=== PATIENT | male | born 1970 | race Caucasian/White ===

== ENCOUNTER 2018-01-19 18:13 | Emergency (ER) | payer BC ==
[2018-01-19] MEDS ORDERED: Albuterol/Ipratropium 3.0-0.5 MG/3 ML Neb Soln NEB ONE (18:14)
[2018-01-19] MEDS ORDERED: methylPREDNISolone Sodium Succinate 125 MG/2 ML SDV IVPUSH ONE (18:16)
--- NOTE | 2018-01-19 18:23 | EDM.PDOC ---
ED HPI GENERAL MEDICAL PROBLEM - General Stated Complaint: ASTMA ATTACK Time Seen by Provider: 01/19/18 18:13 Source of Information: Reports: Patient, Family (daughter) History Limitations: Reports: Respiratory Distress - History of Present Illness INITIAL COMMENTS - FREE TEXT/NARRATIVE: 47 y.o.w.m with a h/o asthma came with his family to the ed to to acute worsening of his asthma with SOB and cough. Pt ran out of Albut solution and his inhalers would not work. Pt could tlk 2 word sentences. No N/V/D, no CP or any other acute medical issues. BP 139/88 Pulse 101 Pulse oc 98 on 10 O2 by NA temp 36.6. Onset Date: 01/19/18 Onset Time: 13:00 Duration: Hour(s):, Getting Worse, Intermittent Location: Reports: Chest Quality: Reports: Same as Previous Episode Severity: Moderate Improves with: Reports: Medication Worsens with: Reports: Movement Context: Reports: Other (asthma exacerbation) Associated Symptoms: Reports: Shortness of Breath - Related Data Allergies Allergy/AdvReac Type Severity Reaction Status Date / Time No Known Allergies Allergy Verified 01/19/18 21:47 Home Meds: Home Meds Albuterol [Proventil Neb Soln] 2.5 mg .XX Q4HR PRN #1 box 01/19/18 [Rx] ED ROS GENERAL - Review of Systems Review Of Systems: See Below Constitutional: Reports: No Symptoms HEENT: Reports: No Symptoms Respiratory: Reports: Shortness of Breath, Wheezing Cardiovascular: Reports: No Symptoms Endocrine: Reports: No Symptoms GI/Abdominal: Reports: No Symptoms : Reports: No Symptoms Musculoskeletal: Reports: No Symptoms Skin: Reports: No Symptoms Neurological: Reports: No Symptoms Psychiatric: Reports: No Symptoms Hematologic/Lymphatic: Reports: No Symptoms Immunologic: Reports: No Symptoms ED EXAM, GENERAL - Physical Exam Exam: See Below Exam Limited By: Respiratory Distress General Appearance: Alert, WD/WN, Moderate Distress Eye Exam: Bilateral Eye: Normal Inspection Ears: Normal External Exam Ear Exam: Bilateral Ear: Auricle Normal Nose: Normal Inspection, Normal Mucosa Throat/Mouth: Normal Inspection, Normal Lips, Normal Oropharynx, No Airway Compromise Head: Atraumatic, Normocephalic Neck: Normal Inspection, Supple, Non-Tender, Full Range of Motion Respiratory/Chest: Respiratory Distress, Decreased Breath Sounds, Wheezing, Prolonged Expiration Cardiovascular: Normal Peripheral Pulses, Regular Rate, Rhythm, No Edema, No Gallop, No JVD, No Murmur, No Rub Peripheral Pulses: 1+: Brachial (R) GI/Abdominal: Normal Bowel Sounds, Soft, Non-Tender, No Organomegaly, No Abnormal Bruit, No Mass, Pelvis Stable (Male) Exam: Deferred Rectal (Males) Exam: Deferred Back Exam: Normal Inspection, Full Range of Motion Extremities: Normal Inspection, Normal Range of Motion, Non-Tender, No Pedal Edema, Normal Capillary Refill Neurological: Alert, Oriented, CN II-XII Intact, Normal Cognition, Normal Gait, No Motor/Sensory Deficits Psychiatric: Normal Affect, Normal Mood Skin Exam: Warm, Dry, Intact, Normal Color, No Rash Lymphatic: No Adenopathy Course - Vital Signs Text/Narrative:: 47 y.o.w.m with a h/o asthma came with his family to the ed to to acute worsening of his asthma with SOB and cough. Pt ran out of Albut solution and his inhalers would not work. Pt could tlk 2 word sentences. No N/V/D, no CP or any other acute medical issues. BP 139/88 Pulse 101 Pulse oc 98 on 10 O2 by NA temp 36.6. PE: 47 y.o.w.m. with acute asthma exacerbation, poor air movement, cough. Imaging: Refused Labs: Refused Impression: Acute asthma exacerbation Tx: Duo neb, Solumedrol, Meds refill Reexam: Improved, lungs were clear, cough subsided, could talk full word sentences Plan: D/C with instructions Last Recorded V/S: Last Vital Signs Temp 36.6 C 01/19/18 20:32 Pulse 73 01/19/18 20:32 Resp 28 H 01/19/18 20:32 BP 139/88 01/19/18 20:32 Pulse Ox 99 01/19/18 20:32 - Orders/Labs/Meds Orders: Active Orders 24 hr Category Date Time Status RT Aerosol Therapy [RC] ASDIRECTED Care 01/19/18 18:15 Active Meds: Medications Discontinued Medications Generic Name Dose Route Start Last Admin Trade Name Freq PRN Reason Stop Dose Admin Albuterol/Ipratropium 3 ml 01/19/18 18:14 01/19/18 18:39 Duoneb 3.0-0.5 Mg/3 Ml NEB 01/19/18 18:15 3 ml ONETIME ONE Administration Methylprednisolone Sodium Succinate 125 mg 01/19/18 18:16 01/19/18 18:39 Solu-Medrol IVPUSH 01/19/18 18:17 125 mg ONETIME ONE Administration Departure - Departure Time of Disposition: 19:23 Disposition: Home, Self-Care 01 Condition: Good Clinical Impression: Asthma attack Qualifiers: Asthma severity: moderate Asthma persistence: unspecified Qualified Code(s): J45.901 - Unspecified asthma with (acute) exacerbation - Discharge Information Prescriptions: Albuterol [Proventil Neb Soln] 2.5 mg .XX Q4HR PRN #1 box PRN Reason: sob Instructions: Asthma, Adult Referrals: Nehemiah Rebollar MD [Primary Care Provider] - Forms: ED Department Discharge Additional Instructions: Please take the prednison taper, please use the albuterol inhaler every 4 hours as needed, please follow up with your PMD, please come back if your symptoms get worse acutely - My Orders Last 24 Hours: My Active Orders 01/19/18 18:15 RT Aerosol Therapy [RC] ASDIRECTED - Assessment/Plan Last 24 Hours: My Active Orders 01/19/18 18:15 RT Aerosol Therapy [RC] ASDIRECTED
== END 2018-01-19 19:40 | disposition home or self-care (01) ==
LOC: FB.ED 18:13
DX: J45.901 Unspecified asthma with (acute) exacerbation (principal)
CPT/HCPCS: 99284; J2930; J7620

== ENCOUNTER 2020-08-11 15:44 | Inpatient (IN) | payer BC ==
[2020-08-11] MEDS ORDERED: Ondansetron 4 MG Tab.DIS PO PRN (16:28)
--- NOTE | 2020-08-11 16:38 | PCM.HP.2 ---
H&P History of Present Illness - General Date of Service: 08/11/20 Admit Problem/Dx: Admission Diagnosis/Problem Admission Diagnosis/Problem Viral pneumonia Source of Information: Patient, Provider - History of Present Illness Initial Comments - Free Text/Narative: Fede presented as direct admission from [facility] today, had seen Dr Rebollar for worsening shortness of breath, home saturations were in 80s, in clinic 90%. He had been treated for bronchitis on 07/30 with Z-gay completed course. Followed up with Dr Rebollar on 08/07, had chest x-ray that showed pneumonia, was started on Levofloxacin, currently day 5 of 7. Had gotten tested for Covid on 08/08 at [facility] and came back positive. He has had worsening shortness of breath over the last few days, coughing if he takes a deep breath. Has had fevers, chills, wheezing but no body aches, sore throat, vomiting, diarrhea, loss of taste/smell. History of Allergies, asthma, Diabetes, hypertension. - Related Data Allergies/Adverse Reactions: Allergies Allergy/AdvReac Type Severity Reaction Status Date / Time No Known Allergies Allergy Verified 08/11/20 16:07 Home Medications: Home Meds Albuterol [Ventolin HFA] 2 puff INH Q4H PRN 08/11/20 [History] Fluticasone Propion/Salmeterol [Advair 250-50 Diskus] 1 inh INH BID 08/11/20 [History] Levofloxacin 750 mg PO DAILY 08/11/20 [History] Montelukast [Singulair] 10 mg PO BEDTIME 08/11/20 [History] lisinopriL [Lisinopril] 10 mg PO DAILY 08/11/20 [History] metFORMIN [Glucophage] 1,000 mg PO BID 08/11/20 [History] Past Medical History Respiratory History: Reports: Asthma, SOB Other Respiratory History: Pt has long hx of asthma Social & Family History - Family History Family Medical History: No Pertinent Family History H&P Review of Systems - Review of Systems: Review Of Systems: Comprehensive ROS is negative, except as noted in HPI. Exam - Exam Exam: See Below - Exam General: Alert, Oriented, Cooperative, Mild Distress HEENT: PERRLA, Conjunctiva Clear, Nares Patent Neck: Supple, Trachea Midline Lungs: Normal Respiratory Effort, Decreased Breath Sounds, Crackles (bibasilar), Wheezing (expiratory bases>upper lobes) Cardiovascular: Regular Rate, Regular Rhythm GI/Abdominal Exam: Normal Bowel Sounds, Soft, Non-Tender, No Distention. No: Guarding, Rigid, Rebound Extremities: No Pedal Edema, Normal Capillary Refill Psychiatric: Alert, Normal Affect, Normal Mood *Q Meaningful Use (ADM) - VTE Risk Assess *Q Each Risk Factor Represents 1 Point: Age 41 - 59 years, Serious lung disease including pneumonia Total Score 1 Point Risk Factors: 2 Each Risk Factor Represents 2 Points: None Total Score 2 Point Risk Factors: 0 Each Risk Factor Represents 3 Points: None Total Score 3 Point Risk Factors: 0 Each Risk Factor Represents 5 Points: None Total Score 5 Point Risk Factors: 0 Venous Thromboembolism Risk Factor Score *Q: 2 - Problem List (1) COVID-19 SNOMED Code(s): 014659095 ICD Code: U07.1 - COVID-19 Status: Acute Current Visit: Yes (2) Viral pneumonia SNOMED Code(s): 51979545 ICD Code: J12.9 - VIRAL PNEUMONIA, UNSPECIFIED Status: Acute Current Visit: Yes (3) Asthma SNOMED Code(s): 602724260 ICD Code: J45.909 - UNSPECIFIED ASTHMA, UNCOMPLICATED Status: Chronic Current Visit: Yes (4) Hypertension SNOMED Code(s): 33757933 ICD Code: I10 - ESSENTIAL (PRIMARY) HYPERTENSION Status: Chronic Current Visit: Yes (5) Seasonal allergies SNOMED Code(s): 983096111 ICD Code: J30.2 - OTHER SEASONAL ALLERGIC RHINITIS Status: Chronic Current Visit: Yes (6) Diabetes SNOMED Code(s): 90492879 ICD Code: E11.9 - TYPE 2 DIABETES MELLITUS WITHOUT COMPLICATIONS Status: Chronic Current Visit: Yes Problem List Initiated/Reviewed/Updated: Yes Orders Last 24hrs: Active Orders 24 hr Category Date Time Status Patient Status [ADT] Routine ADT 08/11/20 16:29 Ordered Blood Glucose Check, Bedside [RC] TIDMEALS Care 08/11/20 16:28 Ordered Nurse Communication: Isolation [RC] ASDIRECTED Care 08/11/20 16:29 Ordered Oxygen Therapy [RC] PRN Care 08/11/20 16:29 Ordered Up ad Margarita [RC] ASDIRECTED Care 08/11/20 16:28 Ordered VTE/DVT Education [RC] Per Unit Routine Care 08/11/20 16:29 Ordered Vital Signs [RC] Q4H Care 08/11/20 16:29 Ordered Consistent Carbohydrate Diet [DIET] Diet 08/11/20 Dinner Ordered CBC WITH AUTO DIFF [HEME] Stat Lab 08/11/20 16:28 Ordered COMPREHENSIVE METABOLIC PN,CMP [CHEM] Stat Lab 08/11/20 16:28 Ordered D-DIMER QUANTITATIVE [COAG] Routine Lab 08/11/20 16:28 Ordered INR,PT,PROTHROMBIN TIME [COAG] Stat Lab 08/11/20 16:28 Ordered PTT,PARTIAL THROMBOPLSTIN TIME [COAG] Stat Lab 08/11/20 16:28 Ordered Acetaminophen [TylenoL] Med 08/11/20 16:28 Ordered 650 mg PO Q4H PRN Enoxaparin [Lovenox] Med 08/11/20 16:30 Ordered 40 mg SUBCUT Q24H Ondansetron [Zofran ODT] Med 08/11/20 16:28 Ordered 4 mg PO Q4H PRN Sodium Chloride 0.9% [Saline Flush] Med 08/11/20 16:28 Ordered 10 ml FLUSH ASDIRECTED PRN dexAMETHasone [Decadron] Med 08/11/20 16:45 Ordered 6 mg IVPUSH DAILY Antiembolic Hose [OM.PC] Per Unit Routine Oth 08/11/20 16:30 Ordered Isolation [COMM] Stat Oth 08/11/20 16:29 Ordered Saline Lock Insert [OM.PC] Routine Oth 08/11/20 16:28 Ordered Resuscitation Status Routine Resus Stat 08/11/20 16:28 Ordered Assessment/Plan Comment:: 1. Admit for inpatient treatment of Covid 19 viral pneumonia, history of asthma. 2. CBC, CMP, PT, aPTT, D-dimer pending. Dexamethasone 6 mg IV daily, once labs received will start Remdesivir. If no contraindication will also start Lovenox 40 mg SQ daily depending on d-dimer results. Oxygen to keep sats over 92%, goal 94%. 3. Asthma: continue home inhalers. Montelukast 10 mg bedtime. 4. DM: consistent carb diet, accuchecks tidmeals since on Dexamethasone. Humalog SSI low dose protocol to start. Continue Metformin bid. 5. Activity: as tolerated in the room. 6. CODE: FULL. - Mortality Measure Prognosis:: Good
[2020-08-11] MEDS ORDERED: Glucagon,Human Recombinant 1 MG Vial IM PRN (16:40)
[2020-08-11] MEDS ORDERED: 50% Dextrose in Water 50 ML Syringe IVPUSH PRN (16:40)
[2020-08-11] MEDS ORDERED: Albuterol 0.083% 2.5 MG/3 ML Neb Soln INH PRN (16:41)
[2020-08-11] MEDS ORDERED: Albuterol 8 GM Inhaler INH PRN ×2 (16:48→17:03)
[2020-08-11] MEDS ORDERED: REMDESIVIR 200 MG in Sodium Chloride 0.9% 250 ML IV ONE (17:44)
[2020-08-11] MEDS ORDERED: Pneumococcal Polyvalent-23 Vaccine 0.5 ML SDV SUBCUT ONE (17:52)
[2020-08-11] MEDS: Dexamethasone 4 MG/ML SDV IVPUSH SCH (18:48)
[2020-08-11] MEDS: metFORMIN 1,000 MG Tab PO SCH (18:52)
[2020-08-11] MEDS ORDERED: Insulin Lispro 100 Unit/ML 3 ML KwikPen SUBCUT ONE (19:00)
[2020-08-11] MEDS: Insulin Lispro 100 Unit/ML 3 ML KwikPen SUBCUT SCH (19:06)
[2020-08-11] MEDS: Enoxaparin 40 MG/0.4 ML Syringe SUBCUT SCH (19:09)
[2020-08-11] MEDS: Sodium Chloride 0.9% 10 ML Syringe FLUSH PRN (19:45)
[2020-08-11] MEDS: FLUTICASONE PROPION INH SCH (21:16)
[2020-08-11] MEDS: Montelukast 10 MG Tab PO SCH (21:16)
[2020-08-11] MEDS: SALMETEROL INH SCH (21:16)
[2020-08-11] MEDS: Acetaminophen 325 MG Tab PO PRN (21:18)
[2020-08-12] MEDS: metFORMIN 1,000 MG Tab PO SCH ×2 (08:56→17:48)
[2020-08-12] MEDS: Levofloxacin 750 MG Tab PO SCH (08:58)
[2020-08-12] MEDS: FLUTICASONE PROPION INH SCH ×2 (08:58→21:00)
[2020-08-12] MEDS: SALMETEROL INH SCH ×2 (08:58→21:00)
[2020-08-12] MEDS: Lisinopril 10 MG Tab PO SCH (08:59)
[2020-08-12] MEDS: Dexamethasone 4 MG/ML SDV IVPUSH SCH (09:01)
[2020-08-12] MEDS: Insulin Lispro 100 Unit/ML 3 ML KwikPen SUBCUT SCH ×3 (09:02→18:18)
[2020-08-12] MEDS ORDERED: Bismuth Subsalicylate 262 MG/15 ML Susp 236 ML Bottle PO PRN (12:24)
[2020-08-12] MEDS: Bismuth Subsalicylate 262 MG/15 ML Susp 236 ML Bottle PO PRN ×2 (13:02→22:41)
[2020-08-12] MEDS: Enoxaparin 40 MG/0.4 ML Syringe SUBCUT SCH (18:10)
[2020-08-12] MEDS: REMDESIVIR 100 MG in Sodium Chloride 0.9% 100 ML IV SCH (18:12)
[2020-08-12] MEDS: Albuterol 8 GM Inhaler INH PRN (18:55)
--- NOTE | 2020-08-12 18:59 | PCM.PN ---
- General Info Date of Service: 08/12/20 Subjective Update: Had night sweats last evening, soaked the bed and pillows. Breathing better on oxygen, cough with deep breathing. No nausea or vomiting. No diarrhea. Cough is dry. - Patient Data Vitals - Most Recent: Last Vital Signs Temp 97.9 F 08/12/20 15:55 Pulse 76 08/12/20 15:55 Resp 18 08/12/20 15:55 BP 131/63 08/12/20 15:55 Pulse Ox 95 08/12/20 15:55 Weight - Most Recent: 275 lb 1.6 oz Lab Results Last 24 Hours: Laboratory Results - last 24 hr 08/12/20 08/12/20 08/12/20 Range/Units 06:25 08:54 11:32 Sodium 140 (135-145) mmol/L Potassium 4.5 (3.5-5.3) mmol/L Chloride 102 (100-110) mmol/L Carbon Dioxide 28 (21-32) mmol/L BUN 16 (7-18) mg/dL Creatinine 0.9 (0.70-1.30) mg/dL Est Cr Clr Drug Dosing 102.52 mL/min Estimated GFR (MDRD) > 60 (>60) BUN/Creatinine Ratio 17.8 (9-20) Glucose 201 H (80-116) mg/dL POC Glucose 171 H 213 H (74-100) mg/dL Calcium 8.9 (8.6-10.2) mg/dL Total Bilirubin 1.1 (0.1-1.3) mg/dL AST 17 (5-25) IU/L ALT 39 H (12-36) U/L Alkaline Phosphatase 56 (56-112) IU/L Total Protein 7.2 (6.0-8.0) g/dL Albumin 2.9 L (3.5-5.2) g/dL Globulin 4.3 g/dL Albumin/Globulin Ratio 0.7 08/12/20 Range/Units 17:34 Sodium (135-145) mmol/L Potassium (3.5-5.3) mmol/L Chloride (100-110) mmol/L Carbon Dioxide (21-32) mmol/L BUN (7-18) mg/dL Creatinine (0.70-1.30) mg/dL Est Cr Clr Drug Dosing mL/min Estimated GFR (MDRD) (>60) BUN/Creatinine Ratio (9-20) Glucose (80-116) mg/dL POC Glucose 232 H (74-100) mg/dL Calcium (8.6-10.2) mg/dL Total Bilirubin (0.1-1.3) mg/dL AST (5-25) IU/L ALT (12-36) U/L Alkaline Phosphatase (56-112) IU/L Total Protein (6.0-8.0) g/dL Albumin (3.5-5.2) g/dL Globulin g/dL Albumin/Globulin Ratio Med Orders - Current: Current Medications Acetaminophen (Tylenol) 650 mg PO Q4H PRN PRN Reason: Pain (Mild 1-3)/fever Last Admin: 08/11/20 21:18 Dose: 650 mg Documented by: Albuterol (Ventolin Hfa) 0 gm INH Q4H PRN PRN Reason: SOB/WHEEZING Bismuth Subsalicylate (Pepto Bismol) 30 ml PO Q1H PRN PRN Reason: Dyspepsia Last Admin: 08/12/20 13:02 Dose: 30 ml Documented by: Dexamethasone (Decadron) 6 mg IVPUSH DAILY [facility] Stop: 08/20/20 09:01 Last Admin: 08/12/20 09:01 Dose: 6 mg Documented by: Dextrose/Water (Dextrose 50% In Water) 50 ml IVPUSH ASDIRECTED PRN PRN Reason: Hypoglycemia Enoxaparin Sodium (Lovenox) 40 mg SUBCUT Q24H [facility] Last Admin: 08/12/20 18:10 Dose: 40 mg Documented by: Glucagon (Glucagen) 1 mg IM ASDIRECTED PRN PRN Reason: Hypoglycemia Remdesivir 100 mg/ Sodium (Chloride) 100 mls @ 100 mls/hr IV Q24H [facility] Stop: 08/15/20 18:59 Last Admin: 08/12/20 18:12 Dose: 100 mls/hr Documented by: Insulin Human Lispro (Humalog) 0 unit SUBCUT TIDMEALS [facility]; Protocol Last Admin: 08/12/20 18:18 Dose: 4 units Documented by: Levofloxacin (Levaquin) 750 mg PO DAILY [facility] Stop: 08/13/20 09:01 Last Admin: 08/12/20 08:58 Dose: 750 mg Documented by: Lisinopril (Prinivil) 10 mg PO DAILY [facility] Last Admin: 08/12/20 08:59 Dose: 10 mg Documented by: Metformin HCl (Glucophage) 1,000 mg PO BIDMEALS [facility] Last Admin: 08/12/20 17:48 Dose: 1,000 mg Documented by: Montelukast Sodium (Singulair) 10 mg PO BEDTIME [facility] Last Admin: 08/11/20 21:16 Dose: 10 mg Documented by: Fluticasone Propion/Salmeterol (Advair) 250-50 Diskus Own Med 1 inh INH BID [facility] Last Admin: 08/12/20 08:58 Dose: 1 inh Documented by: Ondansetron HCl (Zofran Odt) 4 mg PO Q4H PRN PRN Reason: nausea, able to take PO Sodium Chloride (Saline Flush) 10 ml FLUSH ASDIRECTED PRN PRN Reason: Keep Vein Open Last Admin: 08/11/20 19:45 Dose: 10 ml Documented by: Discontinued Medications Albuterol (Ventolin Hfa) 0 gm INH Q4H PRN PRN Reason: SOB/WHEEZING Albuterol (Ventolin Hfa) 0 gm INH Q4H PRN PRN Reason: SOB/WHEEZING Bismuth Subsalicylate (Pepto Bismol) 30 ml PO Q1H PRN PRN Reason: Dyspepsia Remdesivir 200 mg/ Sodium (Chloride) 250 mls @ 250 mls/hr IV ONETIME ONE Stop: 08/11/20 17:45 Last Admin: 08/11/20 18:45 Dose: 250 mls/hr Documented by: Pneumococcal Polyvalent Vaccine (Pneumovax 23) 0.5 ml SUBCUT .ONCE ONE Stop: 08/11/20 17:53 - Exam Quality Assessment: Supplemental Oxygen General: Alert, Oriented, Cooperative, No Acute Distress Lungs: Normal Respiratory Effort, Decreased Breath Sounds (throughout), Crackles (fine bibasilar). No: Wheezing Cardiovascular: Regular Rate, Regular Rhythm GI/Abdominal Exam: Normal Bowel Sounds, Soft, Non-Tender, No Distention Sepsis Event Note - Evaluation Sepsis Screening Result: No Definite Risk - Focused Exam Vital Signs: Vital Signs Temp Pulse Pulse Pulse Resp BP BP 08/12/20 15:55 97.9 F 76 18 131/63 08/12/20 12:10 97.4 F 69 69 15 121/76 08/12/20 09:58 08/12/20 08:59 149/90 H 08/12/20 08:51 97.0 F 60 16 149/90 H Pulse Ox Pulse Ox 08/12/20 15:55 95 08/12/20 12:10 94 L 08/12/20 09:58 95 08/12/20 08:59 08/12/20 08:51 96 - Problem List & Annotations (1) COVID-19 SNOMED Code(s): 745574968 Code(s): U07.1 - COVID-19 Status: Acute Current Visit: Yes (2) Viral pneumonia SNOMED Code(s): 88125108 Code(s): J12.9 - VIRAL PNEUMONIA, UNSPECIFIED Status: Acute Current Visit: Yes (3) Asthma SNOMED Code(s): 913369469 Code(s): J45.909 - UNSPECIFIED ASTHMA, UNCOMPLICATED Status: Chronic Current Visit: Yes (4) Hypertension SNOMED Code(s): 10285296 Code(s): I10 - ESSENTIAL (PRIMARY) HYPERTENSION Status: Chronic Current Visit: Yes (5) Seasonal allergies SNOMED Code(s): 919435891 Code(s): J30.2 - OTHER SEASONAL ALLERGIC RHINITIS Status: Chronic Current Visit: Yes (6) Diabetes SNOMED Code(s): 41377981 Code(s): E11.9 - TYPE 2 DIABETES MELLITUS WITHOUT COMPLICATIONS Status: Chronic Current Visit: Yes - Problem List Review Problem List Initiated/Reviewed/Updated: Yes - My Orders Last 24 Hours: My Active Orders 08/11/20 18:00 Enoxaparin [Lovenox] 40 mg SUBCUT Q24H Insulin Lispro [HumaLOG] See Protocol SUBCUT TIDMEALS metFORMIN [Glucophage] 1,000 mg PO BIDMEALS 08/11/20 21:00 Fluticasone Propion/Salmeterol [Advair 250-50 Diskus] 1 inh INH BID Montelukast [Singulair] 10 mg PO BEDTIME 08/12/20 08:33 Albuterol [Ventolin HFA] 0 gm INH Q4H PRN 08/12/20 09:00 levoFLOXacin [Levaquin] 750 mg PO DAILY lisinopriL [Prinivil] 10 mg PO DAILY 08/12/20 12:29 Bismuth Subsalicylate [Pepto Bismol] 30 ml PO Q1H PRN 08/12/20 17:46 RT Incentive Spirometry [RC] Q1HWA 08/12/20 18:00 Remdesivir (Eua) [Remdesivir (EUA)] 100 mg Sodium Chloride 0.9% [Normal Saline] 100 ml IV Q24H 08/13/20 06:00 ALANINE AMINOTRANSFERASE,ALT [CHEM] Routine ASPARTATE AMNIOTRANSFERASE,AST [CHEM] Routine CREATININE W/GFR [CHEM] Routine - Plan Plan:: 1. COVID pneumonia: Remdesivir 100 mg IV daily x 4, day 2, Dexamethasone 6 mg IV daily, day 2. Lovenox 40 mg SQ daily. Oxygen to keep sats over 92%, goal 94%. Incentive spirometry. 2. Asthma: continue home inhalers. Montelukast 10 mg bedtime. 3. DM: consistent carb diet, accuchecks tidmeals since on Dexamethasone. Humalog SSI low dose protocol to start. Continue Metformin bid. 4. Activity: as tolerated in the room.
[2020-08-12] MEDS: Sodium Chloride 0.9% 10 ML Syringe FLUSH PRN ×3 (19:15→19:17)
[2020-08-12] MEDS: Montelukast 10 MG Tab PO SCH (20:59)
[2020-08-13] MEDS: Albuterol 8 GM Inhaler INH PRN ×3 (08:05→16:00)
[2020-08-13] MEDS: Insulin Lispro 100 Unit/ML 3 ML KwikPen SUBCUT SCH ×3 (08:28→17:59)
[2020-08-13] MEDS: metFORMIN 1,000 MG Tab PO SCH ×2 (08:28→18:00)
[2020-08-13] MEDS: Levofloxacin 750 MG Tab PO SCH (08:31)
[2020-08-13] MEDS: SALMETEROL INH SCH ×2 (08:35→20:37)
[2020-08-13] MEDS: FLUTICASONE PROPION INH SCH ×2 (08:35→20:37)
[2020-08-13] MEDS: Lisinopril 10 MG Tab PO SCH (08:37)
[2020-08-13] MEDS: Dexamethasone 4 MG/ML SDV IVPUSH SCH (08:37)
--- NOTE | 2020-08-13 14:37 | PCM.PN ---
- General Info Date of Service: 08/13/20 Subjective Update: Fede having more chest tightness this morning, improved after his rescue inhaler. Some night sweats last night but not as bad. Some upset stomach but denies nausea, no vomiting. Feels a little better. - Patient Data Vitals - Most Recent: Last Vital Signs Temp 97.8 F 08/13/20 12:00 Pulse 63 08/13/20 12:00 Resp 20 08/13/20 12:00 BP 128/77 08/13/20 12:00 Pulse Ox 94 L 08/13/20 12:00 Weight - Most Recent: 275 lb 1.6 oz Lab Results Last 24 Hours: Laboratory Results - last 24 hr 08/12/20 08/12/20 08/13/20 Range/Units 11:32 17:34 06:53 Creatinine (0.70-1.30) mg/dL Est Cr Clr Drug Dosing mL/min Estimated GFR (MDRD) (>60) POC Glucose 213 H 232 H 139 H (74-100) mg/dL AST (5-25) IU/L ALT (12-36) U/L 08/13/20 08/13/20 Range/Units 06:55 12:01 Creatinine 0.9 (0.70-1.30) mg/dL Est Cr Clr Drug Dosing 102.52 mL/min Estimated GFR (MDRD) > 60 (>60) POC Glucose 181 H (74-100) mg/dL AST 13 D (5-25) IU/L ALT 34 D (12-36) U/L Med Orders - Current: Current Medications Acetaminophen (Tylenol) 650 mg PO Q4H PRN PRN Reason: Pain (Mild 1-3)/fever Last Admin: 08/11/20 21:18 Dose: 650 mg Documented by: Albuterol (Ventolin Hfa) 0 gm INH Q4H PRN PRN Reason: SOB/WHEEZING Last Admin: 08/13/20 08:05 Dose: 2 puff Documented by: Bismuth Subsalicylate (Pepto Bismol) 30 ml PO Q1H PRN PRN Reason: Dyspepsia Last Admin: 08/12/20 22:41 Dose: 30 ml Documented by: Dexamethasone (Decadron) 6 mg IVPUSH DAILY [facility] Stop: 08/20/20 09:01 Last Admin: 08/13/20 08:37 Dose: 6 mg Documented by: Dextrose/Water (Dextrose 50% In Water) 50 ml IVPUSH ASDIRECTED PRN PRN Reason: Hypoglycemia Enoxaparin Sodium (Lovenox) 40 mg SUBCUT Q24H [facility] Last Admin: 08/12/20 18:10 Dose: 40 mg Documented by: Glucagon (Glucagen) 1 mg IM ASDIRECTED PRN PRN Reason: Hypoglycemia Remdesivir 100 mg/ Sodium (Chloride) 100 mls @ 100 mls/hr IV Q24H [facility] Stop: 08/15/20 18:59 Last Admin: 08/12/20 18:12 Dose: 100 mls/hr Documented by: Insulin Human Lispro (Humalog) 0 unit SUBCUT TIDMEALS [facility]; Protocol Last Admin: 08/13/20 12:35 Dose: 2 units Documented by: Lisinopril (Prinivil) 10 mg PO DAILY [facility] Last Admin: 08/13/20 08:37 Dose: 10 mg Documented by: Metformin HCl (Glucophage) 1,000 mg PO BIDMEALS [facility] Last Admin: 08/13/20 08:28 Dose: 1,000 mg Documented by: Montelukast Sodium (Singulair) 10 mg PO BEDTIME [facility] Last Admin: 08/12/20 20:59 Dose: 10 mg Documented by: Fluticasone Propion/Salmeterol (Advair) 250-50 Diskus Own Med 1 inh INH BID [facility] Last Admin: 08/13/20 08:35 Dose: 1 inh Documented by: Ondansetron HCl (Zofran Odt) 4 mg PO Q4H PRN PRN Reason: nausea, able to take PO Sodium Chloride (Saline Flush) 10 ml FLUSH ASDIRECTED PRN PRN Reason: Keep Vein Open Last Admin: 08/12/20 19:17 Dose: 10 ml Documented by: Discontinued Medications Albuterol (Ventolin Hfa) 0 gm INH Q4H PRN PRN Reason: SOB/WHEEZING Albuterol (Ventolin Hfa) 0 gm INH Q4H PRN PRN Reason: SOB/WHEEZING Bismuth Subsalicylate (Pepto Bismol) 30 ml PO Q1H PRN PRN Reason: Dyspepsia Remdesivir 200 mg/ Sodium (Chloride) 250 mls @ 250 mls/hr IV ONETIME ONE Stop: 08/11/20 17:45 Last Admin: 08/11/20 18:45 Dose: 250 mls/hr Documented by: Levofloxacin (Levaquin) 750 mg PO DAILY [facility] Stop: 08/13/20 09:01 Last Admin: 08/13/20 08:31 Dose: 750 mg Documented by: Pneumococcal Polyvalent Vaccine (Pneumovax 23) 0.5 ml SUBCUT .ONCE ONE Stop: 08/11/20 17:53 - Exam Quality Assessment: Supplemental Oxygen General: Alert, Oriented, Cooperative, No Acute Distress Lungs: Clear to Auscultation (BUL), Normal Respiratory Effort, Decreased Breath Sounds, Crackles (bibasilar), Wheezing (bibasilar) Cardiovascular: Regular Rate, Regular Rhythm GI/Abdominal Exam: Normal Bowel Sounds, Soft, Non-Tender, No Distention Sepsis Event Note - Evaluation Sepsis Screening Result: No Definite Risk - Focused Exam Vital Signs: Vital Signs Temp Pulse Resp BP BP Pulse Ox 08/13/20 12:00 97.8 F 63 20 128/77 94 L 08/13/20 08:37 118/74 08/13/20 08:00 97.1 F 61 19 118/74 94 L 08/13/20 04:00 97.7 F 70 16 150/69 H 96 - Problem List & Annotations (1) COVID-19 SNOMED Code(s): 390499102 Code(s): U07.1 - COVID-19 Status: Acute Current Visit: Yes (2) Viral pneumonia SNOMED Code(s): 37345074 Code(s): J12.9 - VIRAL PNEUMONIA, UNSPECIFIED Status: Acute Current Visit: Yes (3) Asthma SNOMED Code(s): 213038151 Code(s): J45.909 - UNSPECIFIED ASTHMA, UNCOMPLICATED Status: Chronic Current Visit: Yes (4) Hypertension SNOMED Code(s): 98950837 Code(s): I10 - ESSENTIAL (PRIMARY) HYPERTENSION Status: Chronic Current Visit: Yes (5) Seasonal allergies SNOMED Code(s): 082999656 Code(s): J30.2 - OTHER SEASONAL ALLERGIC RHINITIS Status: Chronic Current Visit: Yes (6) Diabetes SNOMED Code(s): 61541338 Code(s): E11.9 - TYPE 2 DIABETES MELLITUS WITHOUT COMPLICATIONS Status: Chronic Current Visit: Yes - Problem List Review Problem List Initiated/Reviewed/Updated: Yes - My Orders Last 24 Hours: My Active Orders 08/12/20 17:46 RT Incentive Spirometry [RC] Q1HWA 08/12/20 18:00 Remdesivir (Eua) [Remdesivir (EUA)] 100 mg Sodium Chloride 0.9% [Normal Saline] 100 ml IV Q24H - Plan Plan:: 1. COVID pneumonia: Remdesivir 100 mg IV daily day 2, Dexamethasone 6 mg IV daily, day 3 finish course Tuesday evening. Lovenox 40 mg SQ daily. Oxygen to keep sats over goal 94%. Incentive spirometry. 2. Asthma: continue home inhalers. Montelukast 10 mg bedtime. 3. DM: consistent carb diet, accuchecks tidmeals since on Dexamethasone. Humalog SSI low dose protocol to start. Continue Metformin bid. 4. Activity: as tolerated in the room.
[2020-08-13] MEDS: Bismuth Subsalicylate 262 MG/15 ML Susp 236 ML Bottle PO PRN (16:30)
[2020-08-13] MEDS: REMDESIVIR 100 MG in Sodium Chloride 0.9% 100 ML IV SCH (17:53)
[2020-08-13] MEDS: Enoxaparin 40 MG/0.4 ML Syringe SUBCUT SCH (18:01)
[2020-08-13] MEDS: Montelukast 10 MG Tab PO SCH (20:36)
[2020-08-14] MEDS ORDERED: Calcium Carbonate 500 MG Tab.Chew PO PRN (09:21)
[2020-08-14] MEDS: Dexamethasone 4 MG/ML SDV IVPUSH SCH (09:32)
[2020-08-14] MEDS: Sodium Chloride 0.9% 10 ML Syringe FLUSH PRN ×2 (09:41→18:53)
[2020-08-14] MEDS: Insulin Lispro 100 Unit/ML 3 ML KwikPen SUBCUT SCH ×3 (09:57→18:04)
[2020-08-14] MEDS: metFORMIN 1,000 MG Tab PO SCH ×2 (09:57→17:37)
[2020-08-14] MEDS: Lisinopril 10 MG Tab PO SCH (09:58)
[2020-08-14] MEDS: SALMETEROL INH SCH ×2 (09:59→20:21)
[2020-08-14] MEDS: FLUTICASONE PROPION INH SCH ×2 (09:59→20:21)
--- NOTE | 2020-08-14 13:45 | PCM.PN ---
- General Info Date of Service: 08/14/20 Subjective Update: Fede used his inhaler about 4-5 times yesterday, better in the mornings then feels worse in evenings. Oxygen has been 94% on 1L at rest but then desaturates with activity. Got short of breath after shower this morning. No further chest tightness. Stomach is still upset, has Pepto, Zofran already. Dexamethasone is IV form. - Patient Data Vitals - Most Recent: Last Vital Signs Temp 97.2 F 08/14/20 12:00 Pulse 77 08/14/20 12:00 Resp 18 08/14/20 12:00 BP 143/96 H 08/14/20 12:00 Pulse Ox 94 L 08/14/20 12:00 Weight - Most Recent: 275 lb 1.6 oz Lab Results Last 24 Hours: Laboratory Results - last 24 hr 08/13/20 08/14/20 08/14/20 Range/Units 17:15 06:21 11:50 POC Glucose 238 H 115 H 158 H (74-100) mg/dL Med Orders - Current: Current Medications Acetaminophen (Tylenol) 650 mg PO Q4H PRN PRN Reason: Pain (Mild 1-3)/fever Last Admin: 08/11/20 21:18 Dose: 650 mg Documented by: Albuterol (Ventolin Hfa) 0 gm INH Q4H PRN PRN Reason: SOB/WHEEZING Last Admin: 08/13/20 16:00 Dose: 2 puff Documented by: Bismuth Subsalicylate (Pepto Bismol) 30 ml PO Q1H PRN PRN Reason: Dyspepsia Last Admin: 08/13/20 16:30 Dose: 30 ml Documented by: Calcium Carbonate/Glycine (Tums) 1,000 mg PO Q2H PRN PRN Reason: Indigestion Dexamethasone (Decadron) 6 mg IVPUSH DAILY [facility] Stop: 08/20/20 09:01 Last Admin: 08/14/20 09:32 Dose: 6 mg Documented by: Dextrose/Water (Dextrose 50% In Water) 50 ml IVPUSH ASDIRECTED PRN PRN Reason: Hypoglycemia Enoxaparin Sodium (Lovenox) 40 mg SUBCUT Q24H YOLY Last Admin: 08/13/20 18:01 Dose: 40 mg Documented by: Glucagon (Glucagen) 1 mg IM ASDIRECTED PRN PRN Reason: Hypoglycemia Remdesivir 100 mg/ Sodium (Chloride) 100 mls @ 100 mls/hr IV Q24H [facility] Stop: 08/15/20 18:59 Last Admin: 08/13/20 17:53 Dose: 100 mls/hr Documented by: Insulin Human Lispro (Humalog) 0 unit SUBCUT TIDMEALS [facility]; Protocol Last Admin: 08/14/20 12:36 Dose: 3 units Documented by: Lisinopril (Prinivil) 10 mg PO DAILY [facility] Last Admin: 08/14/20 09:58 Dose: 10 mg Documented by: Metformin HCl (Glucophage) 1,000 mg PO BIDMEALS [facility] Last Admin: 08/14/20 09:57 Dose: 1,000 mg Documented by: Montelukast Sodium (Singulair) 10 mg PO BEDTIME [facility] Last Admin: 08/13/20 20:36 Dose: 10 mg Documented by: Fluticasone Propion/Salmeterol (Advair) 250-50 Diskus Own Med 1 inh INH BID [facility] Last Admin: 08/14/20 09:59 Dose: 1 inh Documented by: Ondansetron HCl (Zofran Odt) 4 mg PO Q4H PRN PRN Reason: nausea, able to take PO Sodium Chloride (Saline Flush) 10 ml FLUSH ASDIRECTED PRN PRN Reason: Keep Vein Open Last Admin: 08/14/20 09:41 Dose: 10 ml Documented by: Discontinued Medications Albuterol (Ventolin Hfa) 0 gm INH Q4H PRN PRN Reason: SOB/WHEEZING Albuterol (Ventolin Hfa) 0 gm INH Q4H PRN PRN Reason: SOB/WHEEZING Bismuth Subsalicylate (Pepto Bismol) 30 ml PO Q1H PRN PRN Reason: Dyspepsia Remdesivir 200 mg/ Sodium (Chloride) 250 mls @ 250 mls/hr IV ONETIME ONE Stop: 08/11/20 17:45 Last Admin: 08/11/20 18:45 Dose: 250 mls/hr Documented by: Levofloxacin (Levaquin) 750 mg PO DAILY [facility] Stop: 08/13/20 09:01 Last Admin: 08/13/20 08:31 Dose: 750 mg Documented by: Pneumococcal Polyvalent Vaccine (Pneumovax 23) 0.5 ml SUBCUT .ONCE ONE Stop: 08/11/20 17:53 - Exam General: Alert, Oriented, Cooperative, No Acute Distress Neck: Trachea Midline Lungs: Clear to Auscultation (cough with deep breathing), Normal Respiratory Effort, Decreased Breath Sounds (Bibasilar). No: Rales, Wheezing Cardiovascular: Regular Rate, Regular Rhythm GI/Abdominal Exam: Normal Bowel Sounds, Soft, Non-Tender, No Distention Extremities: No Pedal Edema Sepsis Event Note - Evaluation Sepsis Screening Result: No Definite Risk - Focused Exam Vital Signs: Vital Signs Temp Pulse Resp BP BP BP Pulse Ox 08/14/20 12:00 97.2 F 77 18 143/96 H 94 L 08/14/20 09:58 134/88 08/14/20 08:00 97.4 F 56 L 20 97 08/14/20 04:00 97.6 F 58 L 18 142/90 H 97 - Problem List & Annotations (1) COVID-19 SNOMED Code(s): 528473424 Code(s): U07.1 - COVID-19 Status: Acute Current Visit: Yes (2) Viral pneumonia SNOMED Code(s): 96610131 Code(s): J12.9 - VIRAL PNEUMONIA, UNSPECIFIED Status: Acute Current Visit: Yes (3) Asthma SNOMED Code(s): 184964627 Code(s): J45.909 - UNSPECIFIED ASTHMA, UNCOMPLICATED Status: Chronic Current Visit: Yes (4) Hypertension SNOMED Code(s): 74166558 Code(s): I10 - ESSENTIAL (PRIMARY) HYPERTENSION Status: Chronic Current Visit: Yes (5) Seasonal allergies SNOMED Code(s): 906476096 Code(s): J30.2 - OTHER SEASONAL ALLERGIC RHINITIS Status: Chronic Current Visit: Yes (6) Diabetes SNOMED Code(s): 60606078 Code(s): E11.9 - TYPE 2 DIABETES MELLITUS WITHOUT COMPLICATIONS Status: Chronic Current Visit: Yes - Problem List Review Problem List Initiated/Reviewed/Updated: Yes - My Orders Last 24 Hours: My Active Orders 08/14/20 09:21 Calcium Carbonate [Tums] 1,000 mg PO Q2H PRN 08/15/20 06:00 ALANINE AMINOTRANSFERASE,ALT [CHEM] Routine ASPARTATE AMNIOTRANSFERASE,AST [CHEM] Routine BASIC METABOLIC PANEL,BMP [CHEM] Routine CBC WITH AUTO DIFF [HEME] Routine - Plan Plan:: 1. COVID pneumonia: Remdesivir 100 mg IV daily day 4, Dexamethasone 6 mg IV daily, day 4 finish course Tuesday evening. Lovenox 40 mg SQ daily. Oxygen to keep sats over goal 94%. Desaturates with activity, may need home oxygen once he finishes his treatment. Incentive spirometry. 2. Asthma: continue home inhalers. Montelukast 10 mg bedtime. 3. DM: consistent carb diet, accuchecks tidmeals since on Dexamethasone. Humalog SSI high dose protocol to start. Continue Metformin bid. 4. Activity: as tolerated in the room.
[2020-08-14] MEDS: REMDESIVIR 100 MG in Sodium Chloride 0.9% 100 ML IV SCH (17:01)
[2020-08-14] MEDS: Acetaminophen 325 MG Tab PO PRN (17:37)
[2020-08-14] MEDS: Enoxaparin 40 MG/0.4 ML Syringe SUBCUT SCH (18:04)
[2020-08-14] MEDS: Montelukast 10 MG Tab PO SCH (20:22)
[2020-08-15] MEDS: metFORMIN 1,000 MG Tab PO SCH ×2 (09:33→18:30)
[2020-08-15] MEDS: Insulin Lispro 100 Unit/ML 3 ML KwikPen SUBCUT SCH ×3 (09:34→18:01)
[2020-08-15] MEDS: Dexamethasone 4 MG/ML SDV IVPUSH SCH (09:34)
[2020-08-15] MEDS: Lisinopril 10 MG Tab PO SCH (09:35)
[2020-08-15] MEDS: FLUTICASONE PROPION INH SCH ×2 (09:36→20:49)
[2020-08-15] MEDS: SALMETEROL INH SCH ×2 (09:36→20:49)
[2020-08-15] MEDS: Sodium Chloride 0.9% 10 ML Syringe FLUSH PRN ×4 (09:37→18:48)
--- NOTE | 2020-08-15 11:54 | DISCH ---
DISCHARGE DATE: 08/15/2020 DISCHARGE DIAGNOSIS: COVID pneumonia. HOSPITAL COURSE: Dequan Couch is a 50-year-old male, admitted from [facility]. Primary doctor of record is Dr. Nehemiah Rebollar. Had been seen several days prior to admission. On 07/30/2020 treated for acute bronchitis, low O2. Follow up on 08/07/2020 revealed pneumonia, was started on levofloxacin. COVID test on 08/08/2020 came back positive. Presented with worsening shortness of breath, cough, complicated pleuritic chest pain, fever, chills, sweats, sense of reduced well being, vomiting, diarrhea, loss of taste, and suspicion for dehydration. Please see Dr. Rebollar's hospital H and P. The patient was admitted to the hospital for treatment and care. Placed on supplemental O2, given appropriate intervention including albuterol HFA, Decadron 6 mg IV 5 days duration, low-dose Humalog for elevated sugars, and completed a 5 day course of remdesivir 1000 mg 5 day intervals. Response was satisfactory. Fever abated. Respirations improved. Oxygen was weaned. At discharge, the patient was well. We will complete his rehab, intervention, and care at home. Medications will include supportive measures only. He will follow up with Dr. Rebollar in 2 weeks' time. /[id number] ENOC/KARUNA
[2020-08-15] MEDS: REMDESIVIR 100 MG in Sodium Chloride 0.9% 100 ML IV SCH (17:39)
[2020-08-15] MEDS: Enoxaparin 40 MG/0.4 ML Syringe SUBCUT SCH (18:29)
[2020-08-15] MEDS: Montelukast 10 MG Tab PO SCH (20:49)
[2020-08-15] MEDS: Acetaminophen 325 MG Tab PO PRN (23:02)
[2020-08-16] MEDS: Insulin Lispro 100 Unit/ML 3 ML KwikPen SUBCUT SCH (08:07)
[2020-08-16] MEDS: Dexamethasone 4 MG/ML SDV IVPUSH SCH (08:18)
[2020-08-16] MEDS: metFORMIN 1,000 MG Tab PO SCH (08:18)
[2020-08-16] MEDS: Lisinopril 10 MG Tab PO SCH (08:20)
[2020-08-16] MEDS: SALMETEROL INH SCH (08:21)
[2020-08-16] MEDS: FLUTICASONE PROPION INH SCH (08:21)
[2020-08-16] MEDS ORDERED: Dexamethasone 4 MG/ML SDV ONE (08:27)
[2020-08-16] MEDS: Sodium Chloride 0.9% 10 ML Syringe FLUSH PRN (08:36)
--- NOTE | 2020-08-18 07:57 | DISCH ---
DISCHARGE DATE: 08/16/2020 ADDENDUM: Dequan had a change in discharge from 08/15 to 08/16. Some mild respiratory distress and issues of sense of discomfort going home. He was watched overnight, O2 saturations were satisfactorily up, ambulated, and symptoms were mild. PHYSICAL EXAMINATION: VITAL SIGNS: Stable. HEENT: Mouth and oropharynx clear. NECK: Benign. Thyroid small. CHEST: Some diffuse wheezing, coarse rhonchi, but good air exchange. HEART: Distant heart sounds. No ectopy or murmur. ABDOMEN: Benign. DIAGNOSIS: Complicated COVID pneumonia. PLAN: Discharge home, no further antivirals of steroids indicated. Fluids, hydration, comfort measures. Activity as tolerated. Followup appointment with Dr. Rebollar in 1 week's time. /[id number] ENOC/KARUNA
== END 2020-08-16 11:10 | disposition home or self-care (01) | DRG 137 ==
LOC: FB.MS 15:44
PROVIDERS: ADMIT Family Medicine; ATTEND Family Medicine
PROC: 8E0ZXY6 Isolation (ICD-10-PCS; principal; 2020-08-11)
PROC: XW033E5 Introduction of Remdesivir Anti-infective into Peripheral Vein, Percutaneous Approach, New Technology Group 5 (ICD-10-PCS; 2020-08-11)
DX: U07.1 COVID-19 (principal); J12.89 Other viral pneumonia; J45.909 Unspecified asthma, uncomplicated; I10 Essential (primary) hypertension; E11.9 Type 2 diabetes mellitus without complications; Z79.84 Long term (current) use of oral hypoglycemic drugs; Z79.899 Other long term (current) drug therapy
CPT/HCPCS: 36415; 80048; 80053; 82565; 82962; 84450; 84460; 85025; 85379; 85610; 85730; 94150; 99231; 99238; A9270-GY; J1100; J1650; J1815; J7050

== ENCOUNTER 2022-01-29 07:57 | Day surgery (SDC) | payer BC ==
[~2022-01-29 07:57] MED LIST: Lactated Ringers 1,000 ML IV SCH; Sodium Chloride 0.9% 10 ML Syringe FLUSH PRN
[2022-01-29] MEDS ORDERED: Glycopyrrolate 0.2 MG/ML 5 ML MDV IV ONE (07:58)
[2022-01-29] MEDS ORDERED: Propofol 200 MG/20 ML SDV IV ONE (07:58)
== END 2022-01-29 11:05 | disposition home or self-care (01) ==
LOC: FB.SDS 07:57
PROVIDERS: ATTEND Surgery
DX: Z12.11 Encounter for screening for malignant neoplasm of colon (principal); D12.8 Benign neoplasm of rectum; K42.9 Umbilical hernia without obstruction or gangrene; J45.909 Unspecified asthma, uncomplicated; I10 Essential (primary) hypertension; E66.01 Morbid (severe) obesity due to excess calories; Z79.82 Long term (current) use of aspirin; Z79.899 Other long term (current) drug therapy; Z79.84 Long term (current) use of oral hypoglycemic drugs; Z87.891 Personal history of nicotine dependence; Z80.0 Family history of malignant neoplasm of digestive organs; Z68.41 Body mass index [BMI] 40.0-44.9, adult
CPT/HCPCS: 00812-QZ; 82947; 88305; J2704; J3490; J7120

== ENCOUNTER 2023-04-16 21:28 | Emergency (ER) | payer BC | END 2023-04-16 22:45 | disposition home or self-care (01) | LOC: FB.ED 21:28 | DX: I10 Essential (primary) hypertension (principal); J45.909 Unspecified asthma, uncomplicated; E66.9 Obesity, unspecified; Z86.16 Personal history of COVID-19; Z68.41 Body mass index [BMI] 40.0-44.9, adult | CPT/HCPCS: 99283 ==

== ENCOUNTER 2025-05-21 22:22 | Emergency (ER) | payer BC ==
[2025-05-21] MEDS: Amoxicillin/Clavulanate K 875-125 MG Tab PO ONE (23:38)
== END 2025-05-21 23:52 | disposition home or self-care (01) ==
LOC: FB.ED 22:22
DX: R59.0 Localized enlarged lymph nodes (principal); I10 Essential (primary) hypertension; J45.909 Unspecified asthma, uncomplicated; E11.9 Type 2 diabetes mellitus without complications; Z86.16 Personal history of COVID-19; Z79.51 Long term (current) use of inhaled steroids; Z79.84 Long term (current) use of oral hypoglycemic drugs; Z79.82 Long term (current) use of aspirin; Z79.899 Other long term (current) drug therapy
CPT/HCPCS: 70490; 99283; A9270